=== PATIENT | female | born 1975 | race Two or more races ===

== ENCOUNTER 2024-09-19 00:14 | Emergency (ER) | payer BC, MEDICAID ==
[~2024-09-19] VITALS: Ht 170.2 cm; Wt 65.9 kg
[2024-09-19 00:44] VITALS: BP 145/88; PULSE 87; RESP 17; TEMP 98; O2SAT 98
[2024-09-19] MEDS ORDERED: TRAM50TA5 PO (03:43)
[2024-09-19] MEDS: TraMADol HCL 50 MG TABLET PO ONE (03:43)
== END 2024-09-19 04:40 | disposition home or self-care (01) ==
LOC: EMS 00:19
DX: S92.812A Other fracture of left foot, initial encounter for closed fracture (principal); E11.9 Type 2 diabetes mellitus without complications; X58.XXXA Exposure to other specified factors, initial encounter; Y93.89 Activity, other specified; Y92.89 Other specified places as the place of occurrence of the external cause; Y99.8 Other external cause status
CPT/HCPCS: 99284